=== PATIENT | male | born 1970 | race Caucasian/White ===

== ENCOUNTER 2018-01-04 11:09 | Emergency (ER) | END 2018-01-04 12:55 | disposition home or self-care (01) ==

== ENCOUNTER 2018-07-12 17:25 | Emergency (ER) | payer OTHER ==
[~2018-07-12] VITALS: Ht 177.8 cm; Wt 92.0 kg
[2018-07-12 17:28] VITALS: Ht 177.8 cm; Wt 92.0 kg
[2018-07-12] MEDS ORDERED: AMOX1TAB10 PO (19:37)
[2018-07-12] MEDS ORDERED: IBUP-1542 PO (19:37)
[2018-07-12] MEDS ORDERED: HYDR25TA6 PO (19:37)
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
[2018-07-12 19:49] VITALS: BP 132/88; PULSE 78; RESP 18
== END 2018-07-12 19:50 | disposition home or self-care (01) ==
LOC: FTE 17:25
DX: J32.0 Chronic maxillary sinusitis (principal)
CPT/HCPCS: 70450; Z7502

== ENCOUNTER 2019-01-18 09:20 | Emergency (ER) | payer OTHER ==
[~2019-01-18] VITALS: Ht 167.6 cm; Wt 89.0 kg
[~2019-01-18 09:20] MED LIST: AMOX1TAB10 PO; HYDR25TA6 PO; IBUP-1542 PO; OMEPRAZOLE; TUMS; VITAMIN D
[2019-01-18 09:21] VITALS: BP 134/61; PULSE 75; RESP 22; Ht 167.6 cm; Wt 89.0 kg
--- NOTE | 2019-01-18 10:26 | ERD ---
ER Documentation Chief Complaint Chief Complaint LT eye redness x5days no pain HPI Patient is a 48-year-old male, no past medical history, presents to the pain ER for concerns of left eye redness x5 day. Patient denies any pain, itching or discharge. Patient denies any visual changes. Patient states the symptoms started after he was working under the sink fixing a faucet for over an hour. He states that night he noticed that there was some redness in his left eye. He states redness has persisted and is not improving thus he presents to the ER. Patient wears glasses however denies wearing any contact lens. ROS All systems reviewed and are negative except as per history of present illness. Medications Home Meds Active Scripts Hydrochlorothiazide* (Hydrochlorothiazide*) 25 Mg Tab, 25 MG PO DAILY, #30 TAB Prov:ELISHA GIBBS MD 07/12/18 Amoxicillin/Potassium Clav (Amox-Clav 875-125 mg Tablet) 875-125 mg Tab, 1 TAB PO BID for 10 Days, #20 TAB Prov:ELISHA GIBBS MD 07/12/18 Ibuprofen* (Motrin*) 600 Mg Tab, 600 MG PO Q6, #20 TAB Prov:ELISHA GIBBS MD 07/12/18 Reported Medications [Vitamin D] No Conflict Check 02/25/18 [Omeprazole] No Conflict Check 02/25/18 [Tums] No Conflict Check 02/25/18 Allergies Allergies: Coded Allergies: No Known Allergy (Unverified , 01/04/18) PMhx/Soc History of Surgery: No Anesthesia Reaction: No Hx Neurological Disorder: No Hx Respiratory Disorders: No Hx Cardiac Disorders: No Hx Psychiatric Problems: No Hx Miscellaneous Medical Probl: No Hx Alcohol Use: Yes (socially) Hx Substance Use: No Hx Tobacco Use: No FmHx Family History: No diabetes Physical Exam Vitals Vital Signs Date Temp Pulse Resp B/P (MAP) Pulse Ox O2 O2 Flow FiO2 Time Delivery Rate 01/18/19 97.9 75 22 134/61 98 09:21 (85) Physical Exam GENERAL: Well-developed, well-nourished male. Appears in no acute distress. HEAD: Normocephalic, atraumatic. EYES: Pupils are equally reactive bilaterally. EOMs grossly intact. Left-sided subconjunctival hemorrhage noted in the medial aspect of the eye. No proptosis. No pain with EOMs. Anterior chambers clear. ENT: Moist mucous membranes. No uvula deviation. No kissing tonsils. NECK: Supple. No meningismus. Normal range of motion of the neck. LUNG: Clear to auscultation bilaterally. No rhonchi, wheezing, rales or coarse breath sounds. HEART: Regular rate and rhythm. No murmurs, rubs or gallops. EXTREMITIES: Equal pulses bilaterally. No peripheral clubbing, cyanosis or edema. No unilateral leg swelling. NEUROLOGIC: Alert and oriented. Moving all four extremities without any difficulty. Normal speech. Steady gait. SKIN: Normal color. Warm and dry. No rashes or lesions. Procedures/MDM MEDICAL DECISION MAKING: Patient is a 48-year-old male who presents the ER for concerns of left eye redness after exertional activity x5 days. Vital signs were reviewed. Patient was afebrile. Eye exam was consistent with subconjunctival hemorrhage. Low suspicion for corneal abrasion, corneal ulcer, retained eye foreign body, glaucoma, periorbital cellulitis, orbital cellulitis, hordeolum, dacrocystitis, globe rupture. Patient was nontoxic, [id number] prior to discharge. DISCHARGE: At this time, patient is stable for discharge and outpatient management. Supportive measures were discussed with patient including warm/cool compresses. Patient advised not to wear contact lenses or eye makeup. I have instructed the patient to follow-up with his/her primary care physician in 1-2 days. I have discussed with the patient the possibility of needing to see an strategic sourcing specialist for further workup if symptoms persist. I have instructed the patient to promptly return to the ER for any new or worsening symptoms including increased pain, fever, swelling, redness, warmth, nausea, vomiting, . The patient and/or family expressed understanding of and agreement with this plan. All questions were answered. Home care instructions were provided. Disclaimer: Inadvertent spelling and grammatical errors are likely due to EHR/dictation software use and do not reflect on the overall quality of patient care. Also, please note that the electronic time recorded on this note does not necessarily reflect the actual time of the patient encounter. Departure Diagnosis: Primary Impression: Subconjunctival hemorrhage of left eye Condition: Fair Patient Instructions: Subconjunctival Hemorrhage Referrals: ON LICENSE OF [facility] YOU HAVE RECEIVED A MEDICAL SCREENING EXAM AND THE RESULTS INDICATE THAT YOU DO NOT HAVE A CONDITION THAT REQUIRES URGENT TREATMENT IN THE EMERGENCY DEPARTMENT. FURTHER EVALUATION AND TREATMENT OF YOUR CONDITION CAN WAIT UNTIL YOU ARE SEEN IN YOUR DOCTORS OFFICE WITHIN THE NEXT 1-2 DAYS. IT IS YOUR RESPONSIBILITY TO MAKE AN APPOINTMENT FOR FOLOW-UP CARE. IF YOU HAVE A PRIMARY DOCTOR --you should call your primary doctor and schedule an appointment IF YOU DO NOT HAVE A PRIMARY DOCTOR YOU CAN CALL OUR PHYSICIAN REFERRAL HOTLINE AT IF YOU CAN NOT AFFORD TO SEE A PHYSICIAN YOU CAN CHOSE FROM THE FOLLOWING [facility] [address] [facility] [address] [facility] [address] [facility] [address] [facility] [address] [facility]. [facility] [address] [facility]. [facility] YOU HAVE RECEIVED A MEDICAL SCREENING EXAM AND THE RESULTS INDICATE THAT YOU DO NOT HAVE A CONDITION THAT REQUIRES URGENT TREATMENT IN THE EMERGENCY DEPARTMENT. FURTHER EVALUATION AND TREATMENT OF YOUR CONDITION CAN WAIT UNTIL YOU ARE SEEN I N YOUR DOCTORS OFFICE WITHIN THE NEXT 1-2 DAYS. IT IS YOUR RESPONSIBILITY TO MAKE AN APPOINTMENT FOR FOLOW-UP CARE. IF YOU HAVE A PRIMARY DOCTOR --you should call your primary doctor and schedule and appointment IF YOU DO NOT HAVE A PRIMARY DOCTOR YOU CAN CALL OUR PHYSICIAN REFERRAL HOTLINE AT . IF YOU CAN NOT AFFORD TO SEE A PHYSICIAN YOU CAN CHOSE FROM THE FOLLOWING [facility]: [facility] [address] [place] [address] [facility] [address] [place] [address] [facility] [address] [place] [address] [facility] Hours: Mon - Fri 9:00 AM - 5:00 PM Additional Instructions: Call your primary care doctor TOMORROW for an appointment during the next 1-2 days.See the doctor sooner or return here if your condition worsens before your appointment time. MARIA T BRIAN PA-C Jan 18, 2019 10:26
== END 2019-01-18 10:55 | disposition home or self-care (01) ==
LOC: FTE 09:20
DX: H11.32 Conjunctival hemorrhage, left eye (principal)
CPT/HCPCS: 99282